=== PATIENT | male | born 1950 | race Caucasian/White ===

== ENCOUNTER 2017-12-18 18:21 | Outpatient (REF) | payer MEDICARE, MEDICAID, SELFPAY ==
[2017-12-18 22:18] LABS: COMMENT (LAB VIEW ONLY) 117.04 mg/dL; Microalb ug/mg Crea 6.8 ug/mg Cr
== END 2017-12-18 18:22 ==
LOC: NCHCN 18:21
PROVIDERS: PCP Family Medicine; Visit Provider Family Medicine
DX: E11.9 Type 2 diabetes mellitus without complications (principal); R60.0 Localized edema
CPT/HCPCS: 82043; 82570

== ENCOUNTER 2019-01-01 12:15 | Outpatient (REF) | payer MEDICARE, MEDICAID, SELFPAY ==
[2019-01-01 21:49] LABS: COMMENT (LAB VIEW ONLY) 107.06 mg/dL; Microalb ug/mg Crea 6.4 ug/mg Cr
== END 2019-01-01 12:35 ==
LOC: NCHCN 12:15
PROVIDERS: PCP Family Medicine; Visit Provider Registered Nurse
DX: E11.65 Type 2 diabetes mellitus with hyperglycemia (principal)
CPT/HCPCS: 82043; 82570

== ENCOUNTER 2019-05-23 12:47 | Outpatient (REF) | payer MEDICARE, MEDICAID, SELFPAY ==
[2019-05-23 20:53] LABS: INR 3.6 (0.9-1.1); Prothrombin Time 35.5 sec (9.3-11.0)
== END 2019-05-23 13:07 ==
LOC: NCHCN 12:47
PROVIDERS: PCP Family Medicine; Visit Provider Registered Nurse
DX: I82.402 Acute embolism and thrombosis of unspecified deep veins of left lower extremity (principal); I87.2 Venous insufficiency (chronic) (peripheral); Z79.01 Long term (current) use of anticoagulants
CPT/HCPCS: 85610

== ENCOUNTER 2019-07-07 21:36 | Outpatient (REF) | payer MEDICARE, MEDICAID, SELFPAY ==
[2019-07-07 22:06] LABS: Anion Gap 9.5 mmol/L (3-11); BUN 22 mg/dL (7-18); CO2 26.5 mmol/L (21.0-32.0); CREATININE 0.96 mg/dL (0.70-1.30); Calcium 8.9 mg/dL (8.5-10.1); Chloride 101 mmol/L (98-107); Glucose 228 mg/dL (74-106); Potassium 4.6 mmol/L (3.5-5.1); Sodium 137 mmol/L (136-145)
== END 2019-07-07 21:56 ==
LOC: NCHCN 21:36
PROVIDERS: PCP Family Medicine; Visit Provider Registered Nurse
DX: I10 Essential (primary) hypertension (principal); E11.9 Type 2 diabetes mellitus without complications
CPT/HCPCS: 80048; 83036

== ENCOUNTER 2020-01-07 21:29 | Outpatient (REF) | payer OTHER, MEDICAID, SELFPAY ==
[2020-01-07 22:41] LABS: COMMENT (LAB VIEW ONLY) 61.78 mg/dL; Microalb ug/mg Crea 15.2 ug/mg Cr
== END 2020-01-07 21:49 ==
LOC: NCHCN 21:29
PROVIDERS: PCP Family Medicine; Visit Provider Registered Nurse
DX: E11.9 Type 2 diabetes mellitus without complications (principal)
CPT/HCPCS: 82043; 82570

== ENCOUNTER 2020-02-06 11:17 | Outpatient (REF) | payer OTHER, MEDICAID, SELFPAY ==
[2020-02-06 22:15] LABS: ALT 40 U/L (16-63); AST 21 U/L (15-37); Albumin 3.8 g/dL (3.4-5.0); Alkaline Phosphatase 84 U/L (46-116); BUN 17 mg/dL (7-18); Bilirubin, Total 0.4 mg/dL (0.2-1.0); CREATININE 0.94 mg/dL (0.70-1.30); Calcium 8.9 mg/dL (8.5-10.1); Chloride 102 mmol/L (98-107); Glucose 180 mg/dL (74-106); Lipase 97 U/L (73-393); Potassium 4.7 mmol/L (3.5-5.1); Sodium 137 mmol/L (136-145)
== END 2020-02-06 11:37 ==
LOC: NCHCN 11:17
PROVIDERS: PCP Family Medicine; Visit Provider Registered Nurse
DX: R10.9 Unspecified abdominal pain (principal)
CPT/HCPCS: 80053; 83690

== ENCOUNTER 2021-01-19 13:17 | Outpatient (REF) | payer OTHER, MEDICAID, SELFPAY ==
[2021-01-19 15:03] LABS: COMMENT (LAB VIEW ONLY) 90.75 mg/dL; Microalb ug/mg Crea 8.7 ug/mg Cr
== END 2021-01-19 13:18 | disposition home or self-care (01) ==
LOC: NCHCN 13:17
PROVIDERS: PCP Family Medicine; Referring Provider Registered Nurse; Visit Provider Registered Nurse
DX: E11.9 Type 2 diabetes mellitus without complications (principal)
CPT/HCPCS: 82043; 82570

== ENCOUNTER 2021-04-20 15:22 | Outpatient (REF) | payer OTHER, MEDICAID, SELFPAY ==
[2021-04-20 14:42] LABS: Hemoglobin A1C 7.1 % (<5.7)
[2021-04-20 14:50] LABS: ALT 32 U/L (16-63); AST 14 U/L (15-37); Albumin 3.8 g/dL (3.4-5.0); Alkaline Phosphatase 85 U/L (46-116); Anion Gap 8.3 mmol/L (3-11); BUN 19 mg/dL (7-18); Bilirubin, Total 0.4 mg/dL (0.2-1.0); CO2 26.7 mmol/L (21.0-32.0); CREATININE 0.9 mg/dL (0.70-1.30); Calcium 9.4 mg/dL (8.5-10.1); Chloride 102 mmol/L (98-107); Cholesterol 170 mg/dL (<200); Glucose 143 mg/dL (74-106); HDL Cholesterol 29 mg/dL (40-60); Potassium 4.7 mmol/L (3.5-5.1); Sodium 137 mmol/L (136-145); Total Protein 7.3 g/dL (6.4-8.2); Triglyceride 462 mg/dL (<150)
[2021-04-20 15:03] LABS: LDL CHOLESTEROL 56 mg/dL (<100)
== END 2021-04-20 15:23 | disposition home or self-care (01) ==
LOC: NCHCN 15:22
PROVIDERS: PCP Family Medicine; Visit Provider Registered Nurse
DX: E11.9 Type 2 diabetes mellitus without complications (principal); I10 Essential (primary) hypertension; E66.9 Obesity, unspecified
CPT/HCPCS: 80053; 80061; 83721; 83036

== ENCOUNTER 2021-07-21 19:07 | Outpatient (REF) | payer OTHER, MEDICAID, SELFPAY ==
[2021-07-21 22:43] LABS: PSA, Screening 0.5 ng/mL (0.0-4.5)
== END 2021-07-21 19:08 | disposition home or self-care (01) ==
LOC: NCHCN 19:07
PROVIDERS: PCP Family Medicine; Visit Provider Registered Nurse
DX: Z12.5 Encounter for screening for malignant neoplasm of prostate (principal)
CPT/HCPCS: 84153

== ENCOUNTER 2021-08-09 20:08 | Outpatient (REF) | payer MEDICARE, MEDICAID, SELFPAY ==
[2021-08-09 21:24] LABS: Anion Gap 14.4 mmol/L (3-11); BUN 25 mg/dL (7-18); CO2 27.6 mmol/L (21.0-32.0); Calcium 8.5 mg/dL (8.5-10.1); Chloride 93 mmol/L (98-107); Glucose 136 mg/dL (74-106); Potassium 4.2 mmol/L (3.5-5.1); Sodium 135 mmol/L (136-145)
== END 2021-08-09 20:09 | disposition home or self-care (01) ==
LOC: NCHCN 20:08
PROVIDERS: PCP Family Medicine; Visit Provider Family Medicine
DX: R30.0 Dysuria (principal); E11.9 Type 2 diabetes mellitus without complications
CPT/HCPCS: 80048; 87077; 87086; 87186

== ENCOUNTER 2022-01-18 21:14 | Outpatient (REF) | payer MEDICARE, MEDICAID, SELFPAY ==
[2022-01-18 21:10] LABS: Anion Gap 9.3 mmol/L (3-11); BUN 20 mg/dL (7-18); CO2 24.7 mmol/L (21.0-32.0); Calcium 9.6 mg/dL (8.5-10.1); Chloride 101 mmol/L (98-107); Estimated GFR 81.47 (mL/min/1.73m2); Glucose 187 mg/dL (74-106); Potassium 4.4 mmol/L (3.5-5.1); Sodium 135 mmol/L (136-145)
[2022-01-19 18:19] LABS: Albumin ug/mg Crea 14 (<30); Albumin, Ur 0.8 mg/dL (See Note); Creatinine, Ur 56.3 mg/dL (See Note)
== END 2022-01-18 21:15 | disposition home or self-care (01) ==
LOC: NCHCN 21:14
PROVIDERS: PCP Family Medicine; Visit Provider Registered Nurse
DX: I10 Essential (primary) hypertension (principal); E11.9 Type 2 diabetes mellitus without complications; E66.01 Morbid (severe) obesity due to excess calories
CPT/HCPCS: 80048; 82043; 82570

== ENCOUNTER 2023-01-25 20:04 | Outpatient (REF) | payer MEDICARE, MEDICAID, SELFPAY ==
[2023-01-25 14:09] LABS: HCT 48.9 % (40.0-50.0); HGB 15.9 g/dL (13.5-17.5); MCH 28.1 pg (27.0-33.0); MCHC 32.5 % (32.0-36.0); MCV 86 fL (80-95); MPV 9.4 fL (8.0-11.0); Platelet Count 173 10^3/uL (130-400); RBC 5.66 10^6/uL (4.36-5.78); RDW 14.5 % (11.8-14.1); RDW-SD 45.7 fL; WBC 6.77 10^3/uL (4.4-10.8)
[2023-01-25 14:41] LABS: Iron 74 ug/dL (65-175); Total Iron Binding Capacity 294 ug/dL (250-450)
[2023-01-25 14:54] LABS: ALT 34 U/L (16-63); AST 16 U/L (15-37); Albumin 3.9 g/dL (3.4-5.0); Alkaline Phosphatase 89 U/L (46-116); Anion Gap 12.5 mmol/L (3-11); BUN 20 mg/dL (7-18); Bilirubin, Total 0.4 mg/dL (0.2-1.0); CO2 23.5 mmol/L (21.0-32.0); Calcium 9.5 mg/dL (8.5-10.1); Chloride 101 mmol/L (98-107); Estimated GFR 80.97 (mL/min/1.73m2); Ferritin 398 ng/mL (26-388); Glucose 231 mg/dL (74-106); Potassium 4.2 mmol/L (3.5-5.1); Sodium 137 mmol/L (136-145); TSH (W/Ref FT4) 0.92 uIU/mL (0.36-3.74); Total Protein 7.4 g/dL (6.4-8.2)
[2023-01-25 15:39] LABS: COMMENT (LAB VIEW ONLY) 38.14 mg/dL; Microalb ug/mg Crea 12.1 ug/mg Cr
[2023-01-25 23:01] LABS: PSA, Screening 0.5 ng/mL (<=6.5)
== END 2023-01-25 20:05 | disposition home or self-care (01) ==
LOC: NCHCN 20:04
PROVIDERS: PCP Family Medicine; Visit Provider Family Medicine
DX: E11.9 Type 2 diabetes mellitus without complications (principal); K76.0 Fatty (change of) liver, not elsewhere classified; I10 Essential (primary) hypertension; Z12.5 Encounter for screening for malignant neoplasm of prostate; G25.81 Restless legs syndrome
CPT/HCPCS: 80053; 84153; 85027; 82043; 82570; 82728; 83540; 83550; 84443

== ENCOUNTER 2024-01-22 14:47 | Outpatient (REF) | payer MEDICARE, MEDICAID, SELFPAY ==
[2024-01-22 17:03] LABS: COMMENT (LAB VIEW ONLY) 35.75 mg/dL; Microalb ug/mg Crea 16.2 ug/mg Cr
== END 2024-01-22 14:48 | disposition home or self-care (01) ==
LOC: NCHCN 14:47
PROVIDERS: PCP Family Medicine; Visit Provider Family Medicine
DX: E11.9 Type 2 diabetes mellitus without complications (principal)
CPT/HCPCS: 82043; 82570

== ENCOUNTER 2024-07-28 21:54 | Outpatient (REF) | payer MEDICARE, MEDICAID, SELFPAY ==
[2024-07-28 21:51] LABS: Abs Immature Grans 0.08 10^3/uL (0.0-0.06); Absolute Basophil Count 0.04 10^3/uL (0.0-0.2); Absolute Eosinophil Count 0.25 10^3/uL (0.0-0.7); Absolute Lymphocyte Count 2.04 10^3/uL (1.2-3.4); Absolute Monocyte Count 0.78 10^3/uL (0.1-0.8); Absolute Neutrophil Count 4.69 10^3/uL (1.2-6.7); Basophils % 0.5 %; Eosinophils % 3.2 %; HCT 46.8 % (40.0-50.0); HGB 15.3 g/dL (13.5-17.5); Lymphocytes % 25.9 %; MCH 27.9 pg (27.0-33.0); MCHC 32.7 % (32.0-36.0); MCV 85 fL (80-95); MPV 10.1 fL (8.0-11.0); Monocytes % 9.9 %; Neutrophils % 59.5 %; Platelet Count 210 10^3/uL (130-400); RBC 5.48 10^6/uL (4.36-5.78); RDW 14.7 % (11.8-14.1); RDW-SD 45.9 fL; WBC 7.88 10^3/uL (4.4-10.8)
[2024-07-28 22:34] LABS: ALT 33 U/L (16-63); AST 17 U/L (15-37); Alkaline Phosphatase 77 U/L (46-116); Anion Gap 9.5 mmol/L (3-11); BUN 20 mg/dL (7-18); Bilirubin, Total 0.5 mg/dL (0.2-1.0); CO2 26.5 mmol/L (21.0-32.0); Calcium 10.3 mg/dL (8.5-10.1); Chloride 103 mmol/L (98-107); Estimated GFR 79.97 (mL/min/1.73m2); Glucose 155 mg/dL (74-106); Potassium 4.7 mmol/L (3.5-5.1); Sodium 139 mmol/L (136-145); TSH (W/Ref FT4) 1.35 uIU/mL (0.36-3.74); Total Protein 7.8 g/dL (6.4-8.2)
== END 2024-07-28 21:55 | disposition home or self-care (01) ==
LOC: NCHCN 21:54
PROVIDERS: PCP Family Medicine; Visit Provider Family Medicine
DX: R42 Dizziness and giddiness (principal)
CPT/HCPCS: 80053; 84443; 85025

== ENCOUNTER 2025-01-26 14:50 | Outpatient (REF) | payer MEDICARE, MEDICAID, SELFPAY ==
[2025-01-27 15:35] LABS: COMMENT (LAB VIEW ONLY) 33.83 mg/dL; Microalb ug/mg Crea 20.1 ug/mg Cr
== END 2025-01-26 14:51 | disposition home or self-care (01) ==
LOC: NCHCN 14:50
PROVIDERS: PCP Family Medicine; Visit Provider Family Medicine
DX: E11.42 Type 2 diabetes mellitus with diabetic polyneuropathy (principal)
CPT/HCPCS: 82043; 82570